=== PATIENT | female | born 1980 | race Caucasian/White ===

== ENCOUNTER 2023-02-28 23:41 | Emergency (ER) | payer BC ==
[2023-02-28 23:53] VITALS: TEMP 97.8; BMI 24.1
[2023-03-01 05:14] VITALS: BP 102/70; PULSE 108; RESP 18
== END 2023-03-01 05:21 | disposition home or self-care (01) ==
LOC: FER 23:41
DX: F10.920 Alcohol use, unspecified with intoxication, uncomplicated (principal)
CPT/HCPCS: 99282-25